=== PATIENT | female | born 1940 | race Caucasian/White ===

== ENCOUNTER 2016-06-06 18:12 | Emergency (ER) | payer MEDICAID, MEDICARE ==
[~2016-06-06] VITALS: Ht 165.1 cm; Wt 65.0 kg
[~2016-06-06 18:12] MED LIST: AMLO5TAB4 PO; ARAV20 PO; ASPI-1035 PO; BENA20TA3 PO; BUPR-43 PO; CLON1TAB4 PO; DOCU-138 PO; DULO60CA44 PO; FOLI-43 PO; GABA100C PO; GABA400C PO; IOHEXOL-300 100 ML BOTTLE ONE; MEMA10TA11 PO; METH2.5T PO; PANT40TA4 PO; PRED5TAB48 PO; QUET50TA11 PO; SENN1TAB35 MT; SODIUM CHLORIDE 0.9% 10ML VIAL ONE; TRAM50TA3 PO; TRAZ-129 PO
[2016-06-06] MEDS ORDERED: MORPHINE SULFATE 4 MG/ML CPJ (NOT FOR IM USE) IV ONE (18:30)
[2016-06-06] MEDS ORDERED: SODIUM CHLORIDE 0.9% 1,000 ML IV ONE (18:33)
[2016-06-06] MEDS ORDERED: MORPHINE SULFATE 4 MG/ML CPJ (NOT FOR IM USE) IV STA (18:33)
[2016-06-06 19:03] LABS: CHLORIDE 108 mEq/L (98-107); INDEX HEMOLYSI 1 (1-3); INDEX ICTERIC 1 (1-4); INDEX LIPEMIC 1 (1-3)
[2016-06-06 19:04] LABS: INR 1.1; PROTHROMBIN TIME 11.4 sec
[2016-06-06 19:05] LABS: HEMATOCRIT. 32.2 % (36.0-48.0); HEMOGLOBIN. 10.2 g/dL (12.0-16.0); MEAN CORPUSCULAR HEMOGLOBIN 27.6 pg (28.0-32.0); MEAN CORPUSCULAR HGB CONC 31.7 g/dL (31.0-37.0); MEAN CORPUSCULAR VOLUME 87.2 fL (81.0-99.0); RED BLOOD CELL COUNT 3.69 mill/uL (4.2-5.4); RED CELL DISTRIBUTION WIDTH 16.3 % (11.6-14.6); WHITE BLOOD COUNT 10.9 x1000/uL (4.5-11.0)
[2016-06-06 19:06] LABS: DIFFERENTIAL COMMENT 1
[2016-06-06 19:07] LABS: ALBUMIN 2.9 g/dL (3.4-5.0); ANION GAP 13; CALCIUM 9.5 mg/dL (8.5-10.1); CARBON DIOXIDE 26 mEq/L (21-32); LIPASE 184 IU/L (73-393); UREA NITROGEN BLOOD 18 mg/dL (7-21)
[2016-06-06 19:09] LABS: ALANINE AMINOTRANSFERASE 17 IU/L (13-61); eGFR 40 mL/min (>60)
[2016-06-06 19:14] LABS: TROPONIN I < 0.02 ng/mL (0.00-0.04)
[2016-06-06 19:19] LABS: MEAN PLATELET VOLUME 9.4 fl (7.4-10.4); PLATELET 238 x1000/uL (130-400)
[2016-06-06 19:20] LABS: PLATELET ESTIMATE NORMAL
[2016-06-06 19:27] LABS: CLARITY URINE CLOUDY (CLEAR); COLOR URINE YELLOW (YELLOW); GLUCOSE URINE NEGATIVE (NEGATIVE); KETONES URINE NEGATIVE (NEGATIVE); LEUKOCYTE ESTERASE URINE 2+ (NEGATIVE); NITRITE URINE NEGATIVE (NEGATIVE); OCCULT BLOOD URINE 1+ (NEGATIVE); PH URINE 5.5 (4.5-8.0); PROTEIN URINE NEGATIVE (NEGATIVE); SPECIFIC GRAVITY URINE 1.013 (1.005-1.030); UROBILINOGEN URINE 0.2 E.U./dL (0.2-1.0)
[2016-06-06 19:56] LABS: BACTERIA URINE 2+; RBC URINE 0-2 /hpf (0-2); SQUAMOUS EPITHELIAL CELL URINE 1+ /lpf (RARE/1+)
[2016-06-06] MEDS ORDERED: CEFTRIAXONE 1 G PREMIX 50 ML IV ONE (22:00)
[2016-06-06 22:19] VITALS: BP 162/93
== END 2016-06-07 01:34 | disposition home or self-care (01) ==
LOC: ER 18:29
DX: N12 Tubulo-interstitial nephritis, not specified as acute or chronic (principal); Z79.899 Other long term (current) drug therapy; I10 Essential (primary) hypertension; M19.90 Unspecified osteoarthritis, unspecified site
CPT/HCPCS: 36415; 71010; 74177; 80053; 81001; 83605; 83690; 84484; 85025; 85610; 87077; 87086; 87186; 93005; 96361; 96365; 96375; 99285; A4216; J0696; J2270; J7030; Q9967

== ENCOUNTER 2016-06-30 15:57 | Emergency (ER) | payer MEDICARE, OTHER ==
[~2016-06-30] VITALS: Ht 152.4 cm; Wt 55.0 kg
[~2016-06-30 15:57] MED LIST changes: -IOHEXOL-300 100 ML BOTTLE ONE; -SODIUM CHLORIDE 0.9% 10ML VIAL ONE
[2016-06-30] MEDS ORDERED: SODIUM CHLORIDE 0.9% 1,000 ML IV ONE (17:04)
[2016-06-30] MEDS ORDERED: KETOROLAC 30MG/ML VIAL IV STA (17:04)
[2016-06-30 17:22] LABS: BASOPHILS % 0.8 % (0.0-2.0); HEMATOCRIT. 31.9 % (36.0-48.0); HEMOGLOBIN. 10.2 g/dL (12.0-16.0); LYMPHOCYTES % 13.1 % (20.0-50.0); MEAN CORPUSCULAR HEMOGLOBIN 27.5 pg (28.0-32.0); MEAN CORPUSCULAR HGB CONC 32.1 g/dL (31.0-37.0); MEAN CORPUSCULAR VOLUME 85.7 fL (81.0-99.0); MEAN PLATELET VOLUME 8.7 fl (7.4-10.4); MONOCYTES % 6.5 % (2.0-8.0); NEUTROPHILS % 77.6 % (40.0-76.0); PLATELET 284 x1000/uL (130-400); RED BLOOD CELL COUNT 3.72 mill/uL (4.2-5.4); RED CELL DISTRIBUTION WIDTH 16.3 % (11.6-14.6)
[2016-06-30 17:28] LABS: INR 1.1
[2016-06-30 17:34] LABS: ALANINE AMINOTRANSFERASE 10 IU/L (13-61); ALBUMIN 3.1 g/dL (3.4-5.0); ANION GAP 13; CALCIUM 9.6 mg/dL (8.5-10.1); CARBON DIOXIDE 25 mEq/L (21-32); CHLORIDE 107 mEq/L (98-107); INDEX HEMOLYSI 1 (1-3); INDEX ICTERIC 1 (1-4); INDEX LIPEMIC 1 (1-3); UREA NITROGEN BLOOD 19 mg/dL (7-21); eGFR 40 mL/min (>60)
[2016-07-01] VITALS: BP 132/57
== END 2016-07-01 00:15 | disposition home or self-care (01) ==
LOC: ER 15:57
DX: M79.1 Myalgia (principal); I10 Essential (primary) hypertension; F32.9 Major depressive disorder, single episode, unspecified; G20 Parkinson's disease; Z79.82 Long term (current) use of aspirin; W19.XXXA Unspecified fall, initial encounter; Y92.128 Other place in nursing home as the place of occurrence of the external cause
CPT/HCPCS: 36415; 70450; 71010; 80053; 85025; 85610; 96374; 99285; J1885; J7030